=== PATIENT | male | born 2000 | race African-American/Black ===

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

== ENCOUNTER 2019-03-03 12:15 | Emergency (ER) | payer SELFPAY ==
[~2019-03-03] VITALS: Ht 175.3 cm; Wt 90.0 kg
[~2019-03-03 12:15] MED LIST changes: +CORTISPORIN OTI10 M2 AD
[2019-03-03] MEDS ORDERED: KEFLEX500 M1 PO (12:34)
[2019-03-03 12:35] VITALS: BP 131/77
== END 2019-03-03 12:35 | disposition home or self-care (01) | DRG 605 ==
LOC: ED 12:15
DX: S91.051A Open bite, right ankle, initial encounter (principal); L08.9 Local infection of the skin and subcutaneous tissue, unspecified; M79.89 Other specified soft tissue disorders; W57.XXXA Bitten or stung by nonvenomous insect and other nonvenomous arthropods, initial encounter; Y92.830 Public park as the place of occurrence of the external cause

== ENCOUNTER 2019-04-18 21:35 | Emergency (ER) | payer SELFPAY ==
[~2019-04-18] VITALS: Ht 175.3 cm; Wt 85.0 kg
[~2019-04-18 21:35] MED LIST changes: +KEFLEX500 M1 PO
[2019-04-18 23:33] VITALS: BP 136/86
== END 2019-04-18 23:33 | disposition home or self-care (01) | DRG 605 ==
LOC: ED 21:35
DX: S60.417A Abrasion of left little finger, initial encounter (principal); W31.82XA Contact with other commercial machinery, initial encounter; Y93.G1 Activity, food preparation and clean up; Y92.89 Other specified places as the place of occurrence of the external cause; Y99.0 Civilian activity done for income or pay

== ENCOUNTER 2019-06-14 | Emergency (ER) | payer SELFPAY ==
[2019-06-14] MEDS ORDERED: TAM75CAP PO (17:02)
== END 2019-06-14 17:05 | disposition home or self-care (01) ==
DX: J11.1 Influenza due to unidentified influenza virus with other respiratory manifestations (principal); D68.0 Von Willebrand disease

== ENCOUNTER 2019-06-16 15:54 | Observation (INO) | payer MEDICAID ==
[~2019-06-16] VITALS: Ht 175.3 cm; Wt 84.0 kg
[~2019-06-16 15:54] MED LIST changes: +TAM75CAP PO
[2019-06-16 17:39] LABS: HEMOGLOBIN 14.1 g/dl (14.0-18.0); IMMATURE GRANULOCYTES 0.3 % (0.0-5.0); MEAN CORPUSCULAR HGB 27.5 pG CALC (26.0-32.0); MEAN CORPUSCULAR HGB CONC 32.8 g/L CALC (32.0-36.0); NEUT# 5.18 thou/uL (1.82-7.42); RED BLOOD COUNT 5.12 mill/uL (4.70-6.10)
[2019-06-16 18:11] LABS: URINE BILIRUBIN - DIPSTICK NEGATIVE (NEGATIVE); URINE BLOOD DIPSTICK NEGATIVE (NEGATIVE); URINE COLOR YELLOW; URINE GLUCOSE - DIPSTICK NEGATIVE (NEGATIVE); URINE KETONE NEGATIVE (NEGATIVE); URINE LEUK ESTERASE NEGATIVE (NEGATIVE); URINE NITRITE - DIPSTICK NEGATIVE (Negative); URINE PROTEIN - DIPSTICK NEGATIVE (NEG-TRACE); URINE SPECIFIC GRAVITY 1.025
[2019-06-16 18:13] LABS: ANION GAP 13 (6-22 (CALC)); BUN 10 mg/dL (8-21); BUN/CREATININE RATIO 12 (12-20 (CALC)); CARBON DIOXIDE 26 mmol/l (22-30); CHLORIDE 104 mmol/l (95-108); CREATININE 0.9 mg/dL (0.7-1.3); GFR > 60 ML/MIN (>=60 (CALC)); GFR FOR AFR.AMER. > 60 ML/MIN (>=60 (CALC)); POTASSIUM 3.9 mmol/l (3.5-5.1); SODIUM 139 mmol/l (137-146)
[2019-06-16 21:45] VITALS: BP 126/70
[2019-06-16 22:00] VITALS: BP 113/63
[2019-06-16 22:15] VITALS: BP 130/66
[2019-06-16 22:30] VITALS: BP 112/68
[2019-06-16 23:56] VITALS: BP 128/61
[2019-06-17] VITALS (12 sets, daily range): BP systolic 113–150; BP diastolic 52–87
[2019-06-17 05:37] LABS: HEMOGLOBIN 14.5 g/dl (14.0-18.0); IMMATURE GRANULOCYTES 0.3 % (0.0-5.0); MEAN CELL VOLUME 83.5 fL CALC (80.0-100.0); MEAN CORPUSCULAR HGB 27.5 pG CALC (26.0-32.0); NEUT# 6.27 thou/uL (1.82-7.42); RED BLOOD COUNT 5.27 mill/uL (4.70-6.10)
[2019-06-17 06:02] LABS: ALBUMIN 4.2 g/dL (3.2-5.0); ALKALINE PHOSPHATASE 55 u/l (38-126); ANION GAP 16 (6-22 (CALC)); BUN 8 mg/dL (8-21); BUN/CREATININE RATIO 12 (12-20 (CALC)); CARBON DIOXIDE 21 mmol/l (22-30); CHLORIDE 107 mmol/l (95-108); CREATININE 0.7 mg/dL (0.7-1.3); GFR > 60 ML/MIN (>=60 (CALC)); GFR FOR AFR.AMER. > 60 ML/MIN (>=60 (CALC)); POTASSIUM 4.6 mmol/l (3.5-5.1); SGOT/AST 20 u/l (17-59); SODIUM 139 mmol/l (137-146); TOTAL PROTEIN 7.5 g/dL (6.3-8.2)
[2019-06-17 06:19] LABS: BILIRUBIN, TOTAL 0.5 mg/dL (0.0-1.4)
[2019-06-18] VITALS: BP 132/68
[2019-06-18 02:00] VITALS: BP 127/65
[2019-06-18 04:00] VITALS: BP 143/53
[2019-06-18 05:31] LABS: HEMATOCRIT 38.1 % (39.0-50.0); HEMOGLOBIN 12.8 g/dl (14.0-18.0); IMMATURE GRANULOCYTES 0.7 % (0.0-5.0); MEAN CELL VOLUME 83.4 fL CALC (80.0-100.0); MEAN CORPUSCULAR HGB CONC 33.6 g/L CALC (32.0-36.0); NEUT# 13.06 thou/uL (1.82-7.42); RED BLOOD COUNT 4.57 mill/uL (4.70-6.10); RED CELL DISTRI WIDTH 13.1 % (11.5-15.5)
[2019-06-18 05:47] LABS: ALBUMIN 3.8 g/dL (3.2-5.0); ALKALINE PHOSPHATASE 64 u/l (38-126); ANION GAP 14 (6-22 (CALC)); BUN 7 mg/dL (8-21); BUN/CREATININE RATIO 11 (12-20 (CALC)); CARBON DIOXIDE 21 mmol/l (22-30); CHLORIDE 109 mmol/l (95-108); CREATININE 0.6 mg/dL (0.7-1.3); GFR > 60 ML/MIN (>=60 (CALC)); GFR FOR AFR.AMER. > 60 ML/MIN (>=60 (CALC)); POTASSIUM 4.4 mmol/l (3.5-5.1); SGOT/AST 16 u/l (17-59); SODIUM 140 mmol/l (137-146); TOTAL PROTEIN 6.9 g/dL (6.3-8.2)
[2019-06-18 05:52] LABS: BILIRUBIN, TOTAL 0.2 mg/dL (0.0-1.4)
[2019-06-18 06:00] VITALS: BP 135/59
[2019-06-18 07:30] VITALS: BP 137/70
[2019-06-18] MEDS ORDERED: AMOX/K CLAV875 M1 PO (08:03)
[2019-06-18 09:03] VITALS: BP 146/64
== END 2019-06-18 09:42 | disposition home or self-care (01) ==
LOC: ED 15:54 → ED-I 18:57 → ED 19:17 → ICU 19:18 → ED-I 19:18 → ICU 21:21
PROVIDERS: Family Medicine; Internal Medicine; ADMIT Internal Medicine; ATTEND Internal Medicine
DX: J11.1 Influenza due to unidentified influenza virus with other respiratory manifestations (principal); D68.0 Von Willebrand disease; R68.84 Jaw pain; Z23 Encounter for immunization
CPT/HCPCS: J0133

== ENCOUNTER 2020-06-25 08:48 | Emergency (ER) | payer SELFPAY ==
[~2020-06-25] VITALS: Ht 175.3 cm; Wt 77.0 kg
[~2020-06-25 08:48] MED LIST changes: +AMOX/K CLAV875 M1 PO
[2020-06-25 09:17] LABS: HEMOGLOBIN 14.7 g/dl (14.0-18.0); IMMATURE GRANULOCYTES 0.2 % (0.0-5.0); MEAN CELL VOLUME 85.4 fL CALC (80.0-100.0); MEAN CORPUSCULAR HGB 27.5 pG CALC (26.0-32.0); MEAN CORPUSCULAR HGB CONC 32.2 g/dL CAL (32.0-36.0); NEUT# 2.36 thou/uL (1.82-7.42); RED BLOOD COUNT 5.34 mill/uL (4.70-6.10); RED CELL DISTRI WIDTH 13.2 % (11.5-15.5)
[2020-06-25 09:25] LABS: HEMATOCRIT 45.6 % (39.0-50.0)
[2020-06-25 09:38] LABS: ALKALINE PHOSPHATASE 46 u/l (38-126); BUN 11 mg/dL (9-20); BUN/CREATININE RATIO 11 (12-20 (CALC)); CHLORIDE 102 mmol/l (95-108); GFR > 60 ML/MIN (>=60 (CALC)); GFR FOR AFR.AMER. > 60 ML/MIN (>=60 (CALC)); LIPASE 39 u/l (23-300); POTASSIUM 3.8 mmol/l (3.5-5.1); SGOT/AST 27 u/l (17-59); SODIUM 139 mmol/l (137-146)
[2020-06-25 09:50] LABS: ANION GAP 14 (6-22 (CALC)); BILIRUBIN, TOTAL 1.3 mg/dL (0.0-1.4); CARBON DIOXIDE 27 mmol/l (22-30); TOTAL PROTEIN 8.4 g/dL (6.3-8.2)
[2020-06-25 10:14] LABS: URINE BILIRUBIN - DIPSTICK NEGATIVE (NEGATIVE); URINE BLOOD DIPSTICK NEGATIVE (NEGATIVE); URINE COLOR YELLOW; URINE GLUCOSE - DIPSTICK NEGATIVE (NEGATIVE); URINE KETONE TRACE mg/dL (NEGATIVE); URINE LEUK ESTERASE NEGATIVE (NEGATIVE); URINE NITRITE - DIPSTICK NEGATIVE (Negative); URINE PROTEIN - DIPSTICK NEGATIVE (NEG-TRACE)
[2020-06-25] MEDS ORDERED: DICYCLOMINE20 MG PO (11:16)
[2020-06-25] MEDS ORDERED: ZOFRAN4 MG/TAB PO (11:16)
[2020-06-25 11:42] VITALS: BP 135/67
== END 2020-06-25 11:42 | disposition home or self-care (01) | DRG 392 ==
LOC: ED 08:48
PROVIDERS: Student in an Organized Health Care Education/Training Program
DX: R10.13 Epigastric pain (principal); R10.33 Periumbilical pain; D68.0 Von Willebrand disease

== ENCOUNTER 2021-03-06 07:51 | Emergency (ER) | payer SELFPAY ==
[~2021-03-06] VITALS: Ht 175.3 cm; Wt 75.0 kg
[~2021-03-06 07:51] MED LIST changes: +DICYCLOMINE20 MG PO
[2021-03-06 09:38] LABS: URINE BILIRUBIN - DIPSTICK NEGATIVE (NEGATIVE); URINE BLOOD DIPSTICK LARGE (NEGATIVE); URINE COLOR YELLOW; URINE GLUCOSE - DIPSTICK NEGATIVE (NEGATIVE); URINE KETONE NEGATIVE (NEGATIVE); URINE PROTEIN - DIPSTICK TRACE mg/dL (NEG-TRACE); URINE UROBILINOGEN - DIPSTICK 0.2 E.U./dL (0.2)
[2021-03-06 09:39] LABS: URINE LEUK ESTERASE MODERATE (NEGATIVE); URINE NITRITE - DIPSTICK POSITIVE (Negative)
[2021-03-06 09:44] LABS: URINE BACTERIA FEW hpf; URINE WBC 50-100 WBC/hpf (0-5)
[2021-03-06] MEDS ORDERED: PYRIDIUM200 MG PO (09:53)
[2021-03-06] MEDS ORDERED: BACTRIM DS1 TAB PO (09:53)
[2021-03-06 09:59] VITALS: BP 136/62
== END 2021-03-06 10:04 | disposition home or self-care (01) | DRG 690 ==
LOC: ED 07:51
DX: N39.0 Urinary tract infection, site not specified (principal); D68.0 Von Willebrand disease; B96.20 Unspecified Escherichia coli [E. coli] as the cause of diseases classified elsewhere

== ENCOUNTER 2021-04-02 22:20 | Emergency (ER) | payer SELFPAY ==
[~2021-04-02] VITALS: Ht 175.3 cm; Wt 73.0 kg
[~2021-04-02 22:20] MED LIST changes: +BACTRIM DS1 TAB PO; +PYRIDIUM200 MG PO
[2021-04-02 23:32] LABS: URINE BILIRUBIN - DIPSTICK NEGATIVE (NEGATIVE); URINE BLOOD DIPSTICK LARGE (NEGATIVE); URINE COLOR YELLOW; URINE GLUCOSE - DIPSTICK NEGATIVE (NEGATIVE); URINE KETONE NEGATIVE (NEGATIVE); URINE PROTEIN - DIPSTICK 100 mg/dL (NEG-TRACE); URINE SPECIFIC GRAVITY >=1.030; URINE UROBILINOGEN - DIPSTICK 0.2 E.U./dL (0.2)
[2021-04-02 23:34] LABS: URINE LEUK ESTERASE MODERATE (NEGATIVE); URINE NITRITE - DIPSTICK POSITIVE (Negative)
[2021-04-02 23:38] LABS: URINE BACTERIA MANY hpf; URINE RBC 25-50 RBC/hpf (0-5); URINE SQUAMOUS EPITHELIAL CELL FEW EPI/hpf (0-FEW); URINE WBC 50-100 WBC/hpf (0-5)
[2021-04-02] MEDS ORDERED: MACRODANTIN100 MG PO (23:53)
[2021-04-02 23:59] VITALS: BP 124/70
== END 2021-04-03 00:10 | disposition home or self-care (01) | DRG 690 ==
LOC: ED 22:20
PROVIDERS: Family Medicine
DX: N39.0 Urinary tract infection, site not specified (principal); D68.0 Von Willebrand disease; B96.89 Other specified bacterial agents as the cause of diseases classified elsewhere

== ENCOUNTER 2021-04-25 19:12 | Emergency (ER) | payer SELFPAY ==
[~2021-04-25] VITALS: Ht 175.3 cm; Wt 73.0 kg
[~2021-04-25 19:12] MED LIST changes: +MACRODANTIN100 MG PO
[2021-04-26 00:25] LABS: HEMATOCRIT 42.8 % (39.0-50.0); HEMOGLOBIN 13.8 g/dl (14.0-18.0); IMMATURE GRANULOCYTES 0.3 % (0.0-5.0); MEAN CELL VOLUME 89.5 fL CALC (80.0-100.0); MEAN CORPUSCULAR HGB 28.9 pG CALC (26.0-32.0); MEAN CORPUSCULAR HGB CONC 32.2 g/dL CAL (32.0-36.0); NEUT# 2.59 thou/uL (1.82-7.42); RED BLOOD COUNT 4.78 mill/uL (4.70-6.10); RED CELL DISTRI WIDTH 12.8 % (11.5-15.5)
[2021-04-26 01:01] LABS: ALBUMIN 4.2 g/dL (3.2-5.0); ALKALINE PHOSPHATASE 66 u/l (38-126); ANION GAP 8 (6-22 (CALC)); BUN 15 mg/dL (9-20); BUN/CREATININE RATIO 15 (12-20 (CALC)); C-REACTIVE PROTEIN < 0.5 mg/dL (0-0.9); CARBON DIOXIDE 31 mmol/l (22-30); CHLORIDE 104 mmol/l (95-108); CPK 292 u/l (52-200); CREATININE 1.1 mg/dL (0.7-1.3); GFR > 60 ML/MIN (>=60 (CALC)); GFR FOR AFR.AMER. > 60 ML/MIN (>=60 (CALC)); MAGNESIUM 1.9 mg/dL (1.6-2.3); POTASSIUM 4.2 mmol/l (3.5-5.1); SGOT/AST 23 u/l (17-59); SODIUM 139 mmol/l (137-146); TOTAL PROTEIN 7.7 g/dL (6.3-8.2)
[2021-04-26 01:04] LABS: BILIRUBIN, TOTAL 0.7 mg/dL (0.0-1.4)
[2021-04-26 01:36] VITALS: BP 147/87
== END 2021-04-26 01:40 | disposition home or self-care (01) | DRG 92 ==
LOC: ED 19:12
PROVIDERS: Emergency Medicine
DX: R25.2 Cramp and spasm (principal); D68.0 Von Willebrand disease

== ENCOUNTER 2021-05-01 13:20 | Emergency (ER) | payer SELFPAY ==
[~2021-05-01] VITALS: Ht 175.3 cm; Wt 70.6 kg
[2021-05-01] MEDS ORDERED: DECADRON4 MG PO (13:59)
[2021-05-01 14:08] VITALS: BP 136/93
== END 2021-05-01 14:08 | disposition home or self-care (01) | DRG 74 ==
LOC: ED 13:20
DX: G62.9 Polyneuropathy, unspecified (principal); D68.0 Von Willebrand disease

== ENCOUNTER 2021-05-08 20:42 | Emergency (ER) | payer SELFPAY ==
[~2021-05-08] VITALS: Ht 172.7 cm; Wt 73.0 kg
[~2021-05-08 20:42] MED LIST changes: +DECADRON4 MG PO
[2021-05-08] MEDS ORDERED: NAPROXEN500 MG PO (23:00)
[2021-05-08] MEDS ORDERED: CYCLOBENZAPRINE10 MG PO (23:00)
[2021-05-09 00:04] VITALS: BP 137/65
== END 2021-05-09 00:12 | disposition home or self-care (01) | DRG 552 ==
LOC: ED 20:42
DX: S33.5XXA Sprain of ligaments of lumbar spine, initial encounter (principal); D68.0 Von Willebrand disease; X58.XXXA Exposure to other specified factors, initial encounter

== ENCOUNTER 2021-05-22 15:23 | Emergency (ER) | payer MEDICAID ==
[~2021-05-22] VITALS: Ht 172.7 cm; Wt 70.0 kg
[~2021-05-22 15:23] MED LIST changes: +CYCLOBENZAPRINE10 MG PO; +NAPROXEN500 MG PO
[2021-05-22] MEDS ORDERED: TORADOL PO (16:33)
[2021-05-22] MEDS ORDERED: FLEXERIL5 M1 PO (16:33)
[2021-05-22] MEDS ORDERED: FLONASE AL50 MCG/ACT (16:33)
[2021-05-22 16:48] VITALS: BP 140/69
== END 2021-05-22 16:50 | disposition home or self-care (01) ==
LOC: ED 15:23
DX: U07.1 COVID-19 (principal); D68.0 Von Willebrand disease; Z86.16 Personal history of COVID-19

== ENCOUNTER 2022-08-01 14:17 | Emergency (ER) | payer BC, MEDICAID ==
[~2022-08-01] VITALS: Ht 172.7 cm; Wt 84.8 kg
[2022-08-01] VITALS (8 sets, daily range): BP systolic 115–138; BP diastolic 70–83
[~2022-08-01 14:17] MED LIST changes: +FLEXERIL5 M1 PO; +FLONASE AL50 MCG/ACT; +TORADOL PO
[2022-08-01 15:18] LABS: URINE BILIRUBIN - DIPSTICK NEGATIVE (NEGATIVE); URINE BLOOD DIPSTICK NEGATIVE (NEGATIVE); URINE COLOR YELLOW; URINE GLUCOSE - DIPSTICK NEGATIVE (NEGATIVE); URINE KETONE NEGATIVE (NEGATIVE); URINE LEUK ESTERASE NEGATIVE (NEGATIVE); URINE PH 7.5 (4.5-8.0); URINE PROTEIN - DIPSTICK NEGATIVE (NEG-TRACE); URINE SPECIFIC GRAVITY 1.015; URINE UROBILINOGEN - DIPSTICK 0.2 E.U./dL (0.2)
[2022-08-01 15:20] LABS: URINE NITRITE - DIPSTICK NEGATIVE (Negative)
[2022-08-01 15:23] LABS: BASO% 0.2 % (0-3); EOS% 0.9 % (0-8); HEMATOCRIT 44.8 % (39.0-50.0); HEMOGLOBIN 15.1 g/dl (14.0-18.0); IMMATURE GRANULOCYTES 0.2 % (0.0-5.0); LYMPH% 14.8 % (15-41); MEAN CELL VOLUME 84.7 fL CALC (80.0-100.0); MEAN CORPUSCULAR HGB 28.5 pG CALC (26.0-32.0); MEAN CORPUSCULAR HGB CONC 33.7 g/dL CAL (32.0-36.0); MONO% 6.8 % (2-13); NEUT# 4.23 thou/uL (1.82-7.42); NEUT% 77.1 % (42-76); RED BLOOD COUNT 5.29 mill/uL (4.70-6.10); RED CELL DISTRI WIDTH 12.8 % (11.5-15.5)
[2022-08-01 15:42] LABS: ALBUMIN 4.8 g/dL (3.2-5.0); ALKALINE PHOSPHATASE 53 u/l (38-126); ANION GAP 13 (6-22 (CALC)); BUN 10 mg/dL (9-20); BUN/CREATININE RATIO 11 (12-20 (CALC)); CARBON DIOXIDE 27 mmol/l (22-30); CHLORIDE 102 mmol/l (95-108); GFR FOR AFR.AMER. > 60 ML/MIN (>=60 (CALC)); GFR OTHER RACES > 60 ML/MIN (>=60 (CALC)); LIPASE 34 u/l (23-300); POTASSIUM 4.1 mmol/l (3.5-5.1); SGOT/AST 28 u/l (17-59); SODIUM 138 mmol/l (137-146); TOTAL PROTEIN 7.9 g/dL (6.3-8.2)
[2022-08-01 15:43] LABS: BILIRUBIN, TOTAL 1.1 mg/dL (0.2-1.3)
[2022-08-01] MEDS ORDERED: OMEPRAZOLE DR20 MG PO (15:59)
== END 2022-08-01 16:14 | disposition home or self-care (01) | DRG 392 ==
LOC: ED 14:17
PROVIDERS: Family Medicine
DX: R10.9 Unspecified abdominal pain (principal); Z20.822 Contact with and (suspected) exposure to COVID-19